=== PATIENT | male | born 1985 | race Caucasian/White ===

== ENCOUNTER 2019-09-22 11:41 | Emergency (ER) | payer SELFPAY ==
[~2019-09-22] VITALS: Ht 170.2 cm; Wt 123.8 kg
[2019-09-22 11:48] VITALS: BP 128/58
[2019-09-22] MEDS: ONDANSETRON 4 MG/2 ML VIAL IVP ONE (12:28)
[2019-09-22] MEDS: NACL 0.9% 1,000 ML IV SCH (12:29)
--- NOTE | 2019-09-22 12:38 | NUR ---
In ER bed 7 C/O Vertigo MD has seen Labs sent Awaiting reults
[2019-09-22 13:20] LABS: BASOPHILS # (AUTO) 0.1 K/uL (0.00-0.22); BASOPHILS % (AUTO) 1.1 % (0.0-2.0); EOSINOPHILS # (AUTO) 0.1 K/uL (0-0.4); HEMATOCRIT 51.1 % (36-52); HEMOGLOBIN 17.1 g/dL (12.0-18.0); LYMPHOCYTES # (AUTO) 1.4 K/uL (2.0-11.5); LYMPHOCYTES % (AUTO) 20.7 % (20.5-51.1); MEAN CORPUSCULAR HEMOGLOBIN 29 pg (27-31); MEAN CORPUSCULAR HGB CONC 34 g/dL (33-37); MEAN CORPUSCULAR VOLUME 86.8 fL (80-94); MONOCYTES # (AUTO) 0.4 K/uL (0.8-1.0); NEUTROPHILS # (AUTO) 4.7 K/uL (1.8-7.7); NEUTROPHILS % (AUTO) 70.2 % (42.2-75.2); PLATELET COUNT (AUTO) 236 K/uL (140-450); RED BLOOD CELL COUNT(AUTO) 5.89 MIL/uL (4.20-6.10); RED CELL DISTRIBUTION WIDTH 13.6 % (11.6-13.7); WHITE BLOOD COUNT (AUTO) 6.7 K/uL (4.8-10.8)
--- NOTE | 2019-09-22 13:23 | NUR ---
Stable. VSS. Afebrile. Denies vertigo. Urine dipped. Awaiting lab results.
[2019-09-22 13:31] LABS: ANION GAP 14.7 (8-16); CARBON DIOXIDE 24.2 mmol/L (21-32); CREATININE 0.8 mg/dL (0.6-1.3); POTASSIUM 3.9 mmol/L (3.5-5.1); TOTAL BILIRUBIN 0.3 mg/dL (0.0-1.0)
[2019-09-22 14:00] LABS: ALBUMIN 3.9 g/dL (3.4-5.0)
[2019-09-22] MEDS: IBUPROFEN 400 MG TAB PO ONE (14:23)
[2019-09-22 14:25] VITALS: BP 115/77
--- NOTE | 2019-09-22 14:26 | NUR ---
Patient discharged with v/s stable. Written and verbal after care instructions given and explained. Patient verbalized understanding. Ambulatory with steady gait. All questions addressed prior to discharge. Advised to follow up with PMD.
== END 2019-09-22 14:26 | disposition home or self-care (01) ==
LOC: MED 11:41
DX: R53.1 Weakness (principal); R42 Dizziness and giddiness; R11.0 Nausea; R19.7 Diarrhea, unspecified
CPT/HCPCS: 36415; 80053; 81002; 85025; 93005; 96361; 96374; 99284; J2405; J7030